=== PATIENT | female | born 1965 | race Caucasian/White ===

== ENCOUNTER → 2020-05-14 | Outpatient (CLI) | payer OTHER | LOC: KOH-I 16:02 | DX: M54.5 Low back pain (principal); M51.27 Other intervertebral disc displacement, lumbosacral region | CPT/HCPCS: 72148 ==

== ENCOUNTER 2021-03-30 15:11 | Inpatient (IN) | payer OTHER ==
[~2021-03-30] VITALS: Ht 160 cm; Wt 55.3 kg
[2021-03-30 15:49] LABS: RED BLOOD COUNT 4.4 M/UL (4.00-5.10)
[2021-03-30 16:37] LABS: BUN/CREATININE RATIO 16 (0-10)
[2021-03-30] MEDS ORDERED: GABAPENTIN400 MG PO (23:51)
[2021-03-30] MEDS ORDERED: HYDROCODONE-AC1 EACH PO (23:52)
[2021-03-31] MEDS ORDERED: HYDROCODON-ACE1 EAC2 PO (09:18)
[2021-03-31] MEDS ORDERED: COLACE100 MG PO (09:18)
[2021-03-31] MEDS ORDERED: PAXIL40 MG PO (13:04)
[2021-04-01] MEDS ORDERED: GABAPENTIN400 MG PO (15:01)
[2021-04-01] MEDS ORDERED: DOCUSATE SODIU100 MG PO (15:01)
[2021-04-01] MEDS ORDERED: HYDROCODON-ACE1 EAC4 PO (15:02)
[2021-04-01] MEDS ORDERED: PAROXETINE HCL40 MG PO (15:02)
[2021-04-02] MEDS ORDERED: PERCOCET 5/325 T1 EA PO (11:07)
== END 2021-04-02 13:49 | disposition home or self-care (01) | DRG 339 ==
LOC: ER1 15:11 → CDU 20:21 → M/S 20:21
PROVIDERS: Physician Assistant; ADMIT Surgery
PROC: 0DTJ4ZZ Resection of Appendix, Percutaneous Endoscopic Approach (ICD-10-PCS; principal; 2021-03-30 21:30)
DX: K35.32 Acute appendicitis with perforation, localized peritonitis, and gangrene, without abscess (principal); I96 Gangrene, not elsewhere classified; E66.9 Obesity, unspecified; G89.29 Other chronic pain; Z20.822 Contact with and (suspected) exposure to COVID-19; Z96.651 Presence of right artificial knee joint; Z98.891 History of uterine scar from previous surgery; M79.7 Fibromyalgia; Z90.49 Acquired absence of other specified parts of digestive tract; Z88.1 Allergy status to other antibiotic agents; Z88.6 Allergy status to analgesic agent; Z83.3 Family history of diabetes mellitus; Z82.49 Family history of ischemic heart disease and other diseases of the circulatory system
CPT/HCPCS: 80053; 81001; 85025; 94760; 96365; 96375; 99285; G0378; J0696; J1100; J1170; J1650; J1885; J2001; J2250; J2405; J2543; J2704; J2710; J3010; J3480; J7030; J7120; Q9967; U0002

== ENCOUNTER → 2021-05-24 | Day surgery (SDC) | payer OTHER ==
[~2021-05-24] MED LIST: COLACE100 MG PO; DOCUSATE SODIU100 MG PO; GABAPENTIN400 MG PO; HYDROCODON-ACE1 EAC2 PO; HYDROCODON-ACE1 EAC4 PO; HYDROCODONE-AC1 EACH PO; PAROXETINE HCL40 MG PO; PAXIL40 MG PO; PERCOCET 5/325 T1 EA PO
== END | disposition home or self-care (01) ==
LOC: OR 06:09
DX: Z12.11 Encounter for screening for malignant neoplasm of colon (principal); K57.30 Diverticulosis of large intestine without perforation or abscess without bleeding; K42.9 Umbilical hernia without obstruction or gangrene; I10 Essential (primary) hypertension; Z83.71 Family history of colonic polyps; Z90.49 Acquired absence of other specified parts of digestive tract; Z88.5 Allergy status to narcotic agent; Z96.651 Presence of right artificial knee joint; Z98.84 Bariatric surgery status; Z72.89 Other problems related to lifestyle; Z20.822 Contact with and (suspected) exposure to COVID-19
CPT/HCPCS: J2001; J2405; J2704; J7120

== ENCOUNTER → 2021-06-23 | Day surgery (SDC) | payer OTHER ==
[~2021-06-23] MED LIST changes: +IBUPROFEN200 MG PO
== END | disposition home or self-care (01) ==
LOC: OR 08:47
DX: K42.9 Umbilical hernia without obstruction or gangrene (principal); F41.9 Anxiety disorder, unspecified; E66.01 Morbid (severe) obesity due to excess calories; Z90.49 Acquired absence of other specified parts of digestive tract; Z88.5 Allergy status to narcotic agent; Z96.651 Presence of right artificial knee joint; Z20.822 Contact with and (suspected) exposure to COVID-19; Z68.43 Body mass index [BMI] 50.0-59.9, adult
CPT/HCPCS: C1781; J0690; J1100; J1170; J1885; J2001; J2250; J2405; J2704; J2710; J3010; J7030; J7120